=== PATIENT | male | born 1990 | race Caucasian/White ===

== ENCOUNTER 2018-10-27 07:51 | Emergency (ER) | payer SELFPAY ==
[2018-10-27] MEDS ORDERED: Tetracaine 0.5% OPHTH SOLN/PF 4 ML BOT ONE (08:02)
[2018-10-27] MEDS ORDERED: hydrOXYzine 25 MG TAB ONE (08:02)
== END 2018-10-27 08:45 | disposition home or self-care (01) ==
LOC: MADERS 07:51
DX: S05.02XA Injury of conjunctiva and corneal abrasion without foreign body, left eye, initial encounter (principal); X58.XXXA Exposure to other specified factors, initial encounter
CPT/HCPCS: 99283

== ENCOUNTER 2019-08-17 16:32 | Emergency (ER) | payer SELFPAY ==
[2019-08-17] MEDS ORDERED: Adacel (T-DAP) 0.5 ML SYRINGE ONE ×2 (18:38→18:43)
[2019-08-17] MEDS ORDERED: Cephalexin 500 MG CAP ONE ×2 (18:38→18:43)
== END 2019-08-17 18:53 | disposition home or self-care (01) ==
LOC: MADERS 16:32
DX: L03.113 Cellulitis of right upper limb (principal); F17.210 Nicotine dependence, cigarettes, uncomplicated; Z23 Encounter for immunization
CPT/HCPCS: 90471; 90715